=== PATIENT | male | born 1960 | race Caucasian/White ===

== ENCOUNTER 2019-10-20 14:01 | Emergency (ER) | payer OTHER, SELFPAY ==
--- NOTE | ~2019-10-20 | XR_ITS ---
EXAMINATION: XR chest 2V DATE: 10/20/2019 15:08 INDICATION: Upper left chest pain radiating to the left shoulder and nausea TECHNIQUE: PA and lateral views of the chest were obtained. COMPARISON: Chest radiograph dated 01/11/[address] dated 06/21/2018 FINDINGS: The lungs are clear with no focal airspace opacities, pulmonary edema, pleural effusion or pneumothor ax. The cardiomediastinal silhouette is normal. Visualized bones and soft tissues are unremarkable. IMPRESSION: 1. No acute cardiopulmonary disease. Reviewed, dictated and finalized at location A.
[2019-10-20 14:18] VITALS: BP 143/86; PULSE 81; RESP 16; O2SAT 97
[2019-10-20 14:30] VITALS: O2SAT 100
--- NOTE | 2019-10-20 14:40 | ECG_ITS ---
Measurements Intervals [place] Rate: 74 P: 52 [place]: 122 QRS: 15 QRSD: 93 T: 17 QT: 390 QTc: 435 Interpretive Statements SINUS RHYTHM BORDERLINE T WAVE ABNORMALITY- INFERIOR LEADS BORDERLINE ECG Electronically Signed On 10-20-2019 15:42:57 CDT by Boubacar Silva D.O.
[2019-10-20 14:41] VITALS: PULSE 70
[2019-10-20 15:30] VITALS: BP 109/88; PULSE 93; RESP 16
[2019-10-20 15:44] LABS: Basophils Percent Auto 0.7 % (0.2-1.2); Hematocrit 40.8 % (42.0-52.0); Hemoglobin 14.2 g/dL (14.0-18.0); Immature Granulocyte Absolute 0.01 K/mm3 (0.00-0.031); Immature Granulocyte Percent A 0.2 % (0-0.5); Mean Corpuscular HGB Conc 34.8 g/dl (32-36); Mean Corpuscular Hemoglobin 33.1 pg (26-34); Mean Corpuscular Volume 95.1 fl (80-100); Mean Platelet Volume 9.9 fl (7.4-10.4); Monocytes Absolute Auto 0.5 K/mm3 (0.1-0.6); Monocytes Percent Auto 11.9 % (2.6-8.5); Neutrophils Absolute Auto 2.3 K/mm3 (1.3-6.7); Neutrophils Percent Auto 55.2 % (45.5-73.1); Platelet Count Result 147 k/mm3 (150-375); Red Blood Count 4.29 M/mm3 (4.6-6.20); Red Cell Distribution Width 11.9 % (11.5-14.5); White Blood Count 4.2 K/mm3 (4.5-10.0)
[2019-10-20 15:55] LABS: INR 1.1; Partial Thromboplastin Time 27.2 SECONDS (22.3-36.8); Prothrombin Time 13.5 Seconds (11.1-14.7)
[2019-10-20 15:56] LABS: Blood Urea Nitrogen 13 mg/dL (9-20); Calcium 8.7 mg/dL (8.4-10.2); Carbon Dioxide 28 mmol/L (22-30); Chloride 105 mmol/L (98-107); Estimated CRCL calculation 88 ml/min; Estimated Glomerular Filt Rate > 60; Glucose 108 mg/dL (75-110); Potassium 3.7 mmol/L (3.4-5.0); Sodium 137 mmol/L (137-145)
--- NOTE | 2019-10-20 16:03 | ED.GENADULT ---
HPI - General Adult General Chief complaint: Chest Pain Stated complaint: CP X 1 WEEK Time Seen by Provider: 10/20/19 15:32 History of Present Illness HPI narrative: Patient is a 59 y/o male complaining of intermittent, left sided, chest pressure for about 1 weeks. He states that his discomfort is mild and there no alleviating or exacerbating factor. The discomfort radiates to his left shoulder. He denies any cough, fever or SOB. Related Data Allergies Allergy/AdvReac Type Severity Reaction Status Date / Time No Known Allergies Allergy Verified 10/20/19 14:23 Review of Systems Constitutional: Constitutional: Denies chills, Denies fever(s), Denies headache(s) and Denies weakness Eyes: Eyes: Denies blurry vision ENT: Denies headache(s) and Denies neck pain Cardiovascular: Cardiovascular: Reports chest pain and Denies dyspnea Respiratory: Respiratory: Denies cough and Denies dyspnea Gastrointestinal: Gastrointestinal: Denies abdominal pain, Denies diarrhea, Denies nausea and Denies vomiting Genitourinary: Genitourinary: Denies hematuria and Denies dysuria Musculoskeletal: Musculoskeletal: Denies back pain and Denies neck pain Neurologic: Denies headache(s) and Denies weakness [facility]LY [facility] Family History Family History Mother Patient's mother is in good health Father Family history of malignant neoplasm, Onset Age: 78 Patient's father is Social History Social History Smoking status: Never smoker Second hand tobacco smoke exposure: No Alcohol intake: current Exam Const: General: no acute distress and well developed Orientation/consciousness: oriented to person, oriented to place, oriented to time and patient oriented x3 HENMT: Head: normocephalic Ears: external ears normal General nose exam: Normal external nose present Eyes: General: appearance normal, both eyes and all related structures Conjunctivae: conjunctivae normal Neck: Neck: normal visual inspection and full ROM Chest: Chest palpation & inspection: normal inspection of the chest and no tenderness Resp: Effort & Inspection: normal respiratory effort Auscultation: clear to auscultation bilaterally Cardio: Rate: regular rate Rhythm: regular rhythm GI: GI Palp: No abdominal tenderness and Yes Soft to palpation Skin: General skin exam: normal color and turgor normal Neuro: General: oriented to person, oriented to place, oriented to time and patient oriented x3 Cognition (Neuro): normal cognition Extrem: General: normal to inspection, full ROM and no pedal edema Psych: Appearance: grossly normal Mental Status: mental status grossly normal Affect: normal affect Course Vital Signs Vital signs: Vital Signs Pulse Rate 81 10/20/19 14:18 Respiratory Rate 16 10/20/19 14:18 Blood Pressure 143/86 H 10/20/19 14:18 Pulse Oximetry 97 10/20/19 14:18 Pulse Rate 95 10/20/19 16:30 Respiratory Rate 16 10/20/19 16:30 Blood Pressure 109/67 10/20/19 16:30 Pulse Oximetry 100 10/20/19 16:30 Medical Decision Making Vital Signs Vital Signs: Vital Signs Pulse Rate 81 10/20/19 14:18 Respiratory Rate 16 10/20/19 14:18 Blood Pressure 143/86 H 10/20/19 14:18 Pulse Oximetry 97 10/20/19 14:18 Pulse Rate 95 10/20/19 16:30 Respiratory Rate 16 10/20/19 16:30 Blood Pressure 109/67 10/20/19 16:30 Pulse Oximetry 100 10/20/19 16:30 Lab Data Result diagrams: 10/20/19 15:38 10/20/19 15:38 Labs: Lab Results 10/20/19 10/20/19 10/20/19 Range/Units 15:38 15:38 15:38 WBC 4.2 L (4.5-10.0) K/mm3 RBC 4.29 L (4.6-6.20) M/mm3 Hgb 14.2 (14.0-18.0) g/dL Hct 40.8 L (42.0-52.0) % MCV 95.1 (80-100) fl MCH 33.1 (26-34) pg MCHC 34.8 (32-36) g/dl RDW 11.9 (11.5-14.5) % Plt Count 147 L (150-375) k/mm3 MPV
[2019-10-20 16:07] LABS: D Dimer 0.27 ug/mL (<0.48)
[2019-10-20 16:08] LABS: Troponin I < 0.012 ng/mL (0.000-0.034)
[2019-10-20 16:30] VITALS: BP 109/67; PULSE 95; RESP 16; O2SAT 100
[2019-10-20 18:34] LABS: Troponin I < 0.012 ng/mL (0.000-0.034)
[2019-10-20 19:02] VITALS: BP 134/90; PULSE 72; RESP 16
== END 2019-10-20 19:05 | disposition home or self-care (01) ==
PROVIDERS: Emergency Medicine; Emergency Provider Emergency Medicine; PCP Internal Medicine
DX: R07.9 Chest pain, unspecified (principal)
CPT/HCPCS: 36415; 71046; 80048; 84484; 85025; 85380; 85610; 85730; 93005; 99284

== ENCOUNTER 2019-11-17 07:21 | Outpatient (CLI) | payer OTHER, SELFPAY ==
--- NOTE | ~2019-11-17 | CT_ITS ---
EXAMINATION: CT chest wo con DATE: 11/17/2019 07:43 INDICATION: R91.1 Solitary pulmonary nodule TECHNIQUE: Computed tomography (CT) of the chest was performed without intravenous contrast. Addition al 3D reconstructions utilizing coronal maximum intensity projection (MIP) were performed. Automated exposure control and iterative reconstruction technique were employed. The dose-length product was 24 4.40 mGy-cm. COMPARISON: 06/21/2018 FINDINGS: No interval change in size of a 8 mm right lower lobe nodule which is since developed central calcifi cation consistent with old granulomatous disease. There are a few additional scattered tiny calcified granulomata in both lungs. Unchanged small flat intrafissural lymph node along the right minor fissu re. No new or enlarging pulmonary nodules identified. No pneumonia, pulmonary edema, pleural effusion or pneumothorax. Heart size is normal. Atherosclerotic coronary artery calcification. No pericardial effusion. Thoracic aorta is normal in caliber. No pathologically enlarged thoracic lymphadenopathy. Bones are unremarkable. IMPRESSION: 1. No change in size of the prior 8 mm right lower lobe pulmonary nodule concerning demonstrating kendall tral calcification consistent with old granulomatous disease requiring no further follow-up. No new o r enlarging nodules identified. Reviewed, dictated and finalized at location A. IMPRESSION: 1. No change in size of the prior 8 mm right lower lobe pulmonary nodule concer geovany demonstrating central calcification consistent with old granulomatous dise ase requiring no further follow-up. No new or enlarging nodules identified.
== END 2019-11-17 07:22 | disposition home or self-care (01) ==
LOC: ANHIMG 07:28
PROVIDERS: PCP Internal Medicine; Visit Provider Internal Medicine
DX: R91.1 Solitary pulmonary nodule (principal)
CPT/HCPCS: 71250

== ENCOUNTER 2019-11-26 08:55 | Outpatient (CLI) | payer OTHER, SELFPAY ==
--- NOTE | ~2019-11-26 | NM_ITS ---
EXAMINATION: NM stress w perf spect multi DATE: 11/26/2019 11:32 INDICATION: Chest pain. TECHNIQUE: Rest images were obtained following intravenous administration of 9.6 mCi Tc99m tetrofosmi n ([employer]). The patient performed an exercise activity. At peak exercise, 30.3 mCi Tc99m tetrofosmin ([employer]) was administered intravenously, and stress images were obtained. Data was reconstructed in to short axis and horizontal and vertical long axis SPECT images. Gated SPECT images were also obtain ed. COMPARISON: Chest CT 11/17/2019 FINDINGS: There is no definite reversible or fixed perfusion abnormality to suggest ischemia or infar ction. There is no segmental wall motion abnormality. Left ventricular ejection fraction measures 6 4%. IMPRESSION: 1. No definite ischemia or infarct. 2. Normal left ventricular ejection fraction measuring 64%. Reviewed, dictated and finalized at location A.
[2019-11-26 09:31] LABS: Basophils Absolute Auto 0.1 K/mm3 (0.0-0.1); Basophils Percent Auto 1.4 % (0.2-1.2); Eosinophils Absolute Auto 0.2 K/mm3 (0-0.3); Eosinophils Percent Auto 3.9 % (0-4.4); Hematocrit 46.9 % (42.0-52.0); Hemoglobin 16.4 g/dL (14.0-18.0); Immature Granulocyte Absolute 0.03 K/mm3 (0.00-0.031); Immature Granulocyte Percent A 0.7 % (0-0.5); Lymphocytes Absolute Auto 1.57 K/mm3 (0.9-3.2); Lymphocytes Percent Auto 35.8 % (18.3-44.2); Mean Corpuscular Hemoglobin 33.4 pg (26-34); Mean Corpuscular Volume 95.5 fl (80-100); Mean Platelet Volume 9.8 fl (7.4-10.4); Monocytes Absolute Auto 0.5 K/mm3 (0.1-0.6); Monocytes Percent Auto 12.3 % (2.6-8.5); Neutrophils Percent Auto 45.9 % (45.5-73.1); Platelet Count Result 163 k/mm3 (150-375); Red Blood Count 4.91 M/mm3 (4.6-6.20); White Blood Count 4.4 K/mm3 (4.5-10.0)
--- NOTE | 2019-11-26 10:03 | EST_ITS ---
Patient Info Name: Arpit Bedolla Age: 59 years : 1960 Gender: Male Ht: 69 in Wt: 170 lbs BSA: 1.95 m2 Exam Date: 11/26/2019 10:10 AM Exam Location: [facility] Stress Patient Status: Outpatient Admit Date: 11/26/2019 Staff Ordering Physician: Mack Zeng DO Attending Provider: Mack Zeng DO Exercise Technologist: Michael Osborn RDCS, RT Exercise Physician: Boubacar Silva DO Exam Type: CA stress test treadmill w NM Study Info A treadmill exercise stress test was performed. Summary 1. 1. Negative Sammy exercise stress test for ischemic ST changes by ECG criteria. 2. 2. Good functional capacity, achieving 12 METs of workload. 3. 3. Appropriate HR response to exercise. 4. 4. Appropriate HR recovery at 1 minute post exercise. 5. 5. Nuclear scan to follow and will be reported separately. Please correlate with it. 6. 6. Patient informed of the above results. Protocol: Sammy Stress ECG Details Stage: REST Duration (min): 3 min : 8 sec Speed (mph): 0.0 Grade (%): 0 HR (bpm): 69 SBP (mmHg): 132 DBP (mmHg): 87 METS: --- Stage: REST Duration (min): 10 min : 18 sec Speed (mph): 0.0 Grade (%): 0 HR (bpm): 98 SBP (mmHg): 132 DBP (mmHg): 87 METS: --- Stage: STAGE 1 Duration (min): 1 min : 0 sec Speed (mph): 1.7 Grade (%): 10 HR (bpm): 97 SBP (mmHg): 132 DBP (mmHg): 87 METS: --- Stage: STAGE 1 Duration (min): 2 min : 0 sec Speed (mph): 1.7 Grade (%): 10 HR (bpm): 99 SBP (mmHg): 132 DBP (mmHg): 87 METS: --- Stage: STAGE 1 Duration (min): 3 min : 0 sec Speed (mph): 1.7 Grade (%): 10 HR (bpm): 97 SBP (mmHg): 142 DBP (mmHg): 80 METS: --- Stage: STAGE 2 Duration (min): 1 min : 0 sec Speed (mph): 2.5 Grade (%): 12 HR (bpm): 110 SBP (mmHg): 142 DBP (mmHg): 80 METS: --- Stage: STAGE 2 Duration (min): 2 min : 0 sec Speed (mph): 2.5 Grade (%): 12 HR (bpm): 113 SBP (mmHg): 137 DBP (mmHg): 81 METS: --- Stage: STAGE 2 Duration (min): 3 min : 0 sec Speed (mph): 2.5 Grade (%): 12 HR (bpm): 113 SBP (mmHg): 137 DBP (mmHg): 81 METS: --- Stage: STAGE 3 Duration (min): 1 min : 0 sec Speed (mph): 3.4 Grade (%): 14 HR (bpm): 125 SBP (mmHg): 163 DBP (mmHg): 78 METS: --- Stage: STAGE 3 Duration (min): 2 min : 0 sec Speed (mph): 3.4 Grade (%): 14 HR (bpm): 134 SBP (mmHg): 163 DBP (mmHg): 78 METS: --- Stage: STAGE 3 Duration (min): 3 min : 0 sec Speed (mph): 3.4 Grade (%): 14 HR (bpm): 140 SBP (mmHg): 163 DBP (mmHg): 76 METS: --- Stage: STAGE 4 Duration (min): 1 min : 0 sec Speed (mph): 4.2 Grade (%): 16 HR (bpm): 156 SBP (mmHg): 163 DBP (mmHg): 76 METS: --- Stage: STAGE 4 Duration (min): 1 min : 14 sec S
[2019-11-26 11:07] LABS: Alanine Aminotransferase 52 U/L (4-50); Albumin Level 4.4 g/dL (3.5-5.1); Alkaline Phosphatase 77 U/L (38-126); Anion Gap 5 mmol/L (8-16); Aspartate Amino Transferase 42 U/L (17-59); Blood Urea Nitrogen 21 mg/dL (9-20); Calcium 9.1 mg/dL (8.4-10.2); Carbon Dioxide 30 mmol/L (22-30); Chloride 104 mmol/L (98-107); Cholesterol 288 mg/dL (0-200); Estimated Glomerular Filt Rate > 60; Glucose 95 mg/dL (75-110); HDL Direct 47 mg/dL; Potassium 4.6 mmol/L (3.4-5.0); Sodium 139 mmol/L (137-145); Triglycerides 293 mg/dL (<150)
[2019-11-26 11:45] LABS: LDL Cholesterol Direct 163 mg/dL
[2019-11-26 12:43] LABS: Folic Acid 13.8 ng/mL (2.76->20)
== END 2019-11-26 08:56 | disposition home or self-care (01) ==
PROVIDERS: PCP Internal Medicine; Visit Provider Internal Medicine
DX: E78.5 Hyperlipidemia, unspecified (principal); R07.9 Chest pain, unspecified; R53.83 Other fatigue
CPT/HCPCS: 36415; 78452; 80053; 80061; 82607; 82746; 84443; 85025; 93017; A9502

== ENCOUNTER 2020-06-15 08:13 | Outpatient (CLI) | payer OTHER, SELFPAY ==
[2020-06-15 08:35] LABS: Basophils Absolute Auto 0.1 K/mm3 (0.0-0.1); Basophils Percent Auto 1.3 % (0.2-1.2); Eosinophils Absolute Auto 0.1 K/mm3 (0-0.3); Eosinophils Percent Auto 3.8 % (0-4.4); Hematocrit 44.7 % (42.0-52.0); Hemoglobin 15.1 g/dL (14.0-18.0); Immature Granulocyte Absolute 0.01 K/mm3 (0.00-0.031); Immature Granulocyte Percent A 0.3 % (0-0.5); Lymphocytes Absolute Auto 1.34 K/mm3 (0.9-3.2); Mean Corpuscular HGB Conc 33.8 g/dl (32-36); Mean Corpuscular Hemoglobin 32.7 pg (26-34); Mean Corpuscular Volume 96.8 fl (80-100); Mean Platelet Volume 9.4 fl (7.4-10.4); Monocytes Absolute Auto 0.5 K/mm3 (0.1-0.6); Monocytes Percent Auto 14.5 % (2.6-8.5); Neutrophils Absolute Auto 1.6 K/mm3 (1.3-6.7); Neutrophils Percent Auto 44.1 % (45.5-73.1); Platelet Count Result 141 k/mm3 (150-375); Red Blood Count 4.62 M/mm3 (4.6-6.20); Red Cell Distribution Width 11.9 % (11.5-14.5); White Blood Count 3.7 K/mm3 (4.5-10.0)
[2020-06-15 08:48] LABS: Alanine Aminotransferase 36 U/L (4-50); Albumin Level 4.1 g/dL (3.5-5.1); Alkaline Phosphatase 69 U/L (38-126); Anion Gap 3 mmol/L (8-16); Aspartate Amino Transferase 31 U/L (17-59); Bilirubin,Total 0.9 mg/dL (0.2-1.3); Blood Urea Nitrogen 14 mg/dL (9-20); Calcium 9.1 mg/dL (8.4-10.2); Carbon Dioxide 32 mmol/L (22-30); Chloride 105 mmol/L (98-107); Cholesterol 175 mg/dL (0-200); Estimated Glomerular Filt Rate > 60; Glucose 124 mg/dL (75-110); HDL Direct 47 mg/dL; Potassium 4.3 mmol/L (3.4-5.0); Sodium 140 mmol/L (137-145); Triglycerides 158 mg/dL (<150)
[2020-06-15 09:00] LABS: LDL Cholesterol Direct 86 mg/dL
== END 2020-06-15 08:14 | disposition home or self-care (01) ==
PROVIDERS: PCP Internal Medicine; Visit Provider Internal Medicine
DX: R53.83 Other fatigue (principal); Z00.00 Encounter for general adult medical examination without abnormal findings
CPT/HCPCS: 36415; 80053; 80061; 82607; 82746; 84443; 85025

== ENCOUNTER 2020-07-23 13:17 | Emergency (ER) | payer OTHER, SELFPAY ==
[2020-07-23 13:20] VITALS: BP 152/98; PULSE 67; RESP 20; TEMP 36.6; O2SAT 100
[2020-07-23 15:21] VITALS: BP 179/80; PULSE 67; RESP 16; O2SAT 100
--- NOTE | 2020-07-23 15:57 | ED.BACK ---
HPI - Back Pain/Injury General Chief Complaint: Back Pain/Injury Stated Complaint: back pain Time Seen by Provider: 07/23/20 15:16 Source: patient Mode of arrival: ambulatory Limitations: no limitations History of Present Illness HPI Narrative: This is a 60 year old male with history of chronic low back pain who presents for evaluation of worsening low back pain. He has developed gradual worsening of his lower back pain over the past 8 hours. He states his pain started getting worse with walking. He has pain that radiates down his right leg. He denies numbness or tingling. He denies urinary retention, incontinence or bowel incontinence. He also denies saddle anesthesia. He took ibuprofen at 7 am this morning and he has not taken any medication since. He receives back injections for his back pain and he scheduled for another one in 2 weeks. He states he had an MRI 2 years ago. Patient is worse with moving. He states his pain is worse with he tries to straighten his legs. Related Data Home Medications Medication Instructions Recorded Confirmed colchicine mg 07/23/20 Allergies Allergy/AdvReac Type Severity Reaction Status Date / Time No Known Allergies Allergy Verified 07/23/20 13:24 Review of Systems Review of Systems: All systems reviewed & are unremarkable except as noted in HPI and below Constitutional: Constitutional: Denies chills and Denies fever(s) Respiratory: Respiratory: Denies dyspnea Gastrointestinal: Gastrointestinal: Denies abdominal pain, Denies diarrhea, Denies nausea and Denies vomiting Genitourinary: Genitourinary: Denies hematuria, Denies oliguria and Denies urinary incontinence Musculoskeletal: Musculoskeletal: Reports back pain Neurologic: Denies focal weakness, Denies numbness and Denies weakness FOR[facility]LY [facility] Past Medical History Medical History (Updated 07/23/20 @ 17:04 by Michelle Cowan MD) Chronic back pain Hyperlipidemia Family History Family History Mother Patient's mother is in good health Father Family history of malignant neoplasm, Onset Age: 78 Patient's father is Social History Social History Smoking status: Never smoker Second hand tobacco smoke exposure: No Alcohol intake: current Substance use: never Gender identity (if verbalized by the patient): Male Exam Const: General: alert Orientation/consciousness: patient oriented x3 Eyes: EOM: EOMs intact bilaterally Chest: Chest palpation & inspection: normal inspection of the chest Resp: Effort & Inspection: normal respiratory effort and no retractions Auscultation: clear to auscultation bilaterally Cardio: Rate: regular rate Rhythm: regular rhythm Heart sounds: no murmurs GI: GI Palp: Yes Soft to palpation, No Tenderness to palpation present (GI) and No Guarding due to palpation present (GI) Auscultation: normal bowel sounds Back/Spine/Pelvis: Thoracic/Lumbar Spine: thoraco-lumbar ROM limited (pain with extending his right leg, ) and straight leg raise positive Skin: General skin exam: normal color Rashes: no rashes Neuro: General: patient oriented x3, moves all extremities and CN's II-XI intact bilaterally Psych: Mental Status: mental status grossly normal Affect: normal affect Course Reevaluation(s) Reevaluation #1: PAtient reports he feels better. HE is able to stand up from bed. He has not signs of acute cord compression. I discussed discharge plan and treatment. He will follow up with pcp, pain management for treatment and outpatient MRI Date: 07/23/20 Time: 17:03 Vital Signs Vital signs: Vital Signs Temperature 97.9 F 07/23/20 13:20 Pulse Rate 67 07/23/20 13:20 Respiratory Rate 20 07/23/20 13:20 Blood Pressure 152/98 H 07/23/20 13:20 Pulse Oximetry 100 07/23/20 13:20 Temperature 98.0 F 07/23/20 17:26 Pulse R
[2020-07-23] MEDS: methylPREDNISolone SOD SUCC 125 MG VIAL IV PUSH (16:02)
[2020-07-23] MEDS: HYDROmorphone HCL INJ (*CRX) 1 MG/ML SYR IV PUSH (16:03)
[2020-07-23] MEDS: KETOROLAC 30 MG/ML VIAL (*BKC) IV PUSH (16:03)
[2020-07-23 17:14] VITALS: BP 155/91; PULSE 82; RESP 18; O2SAT 97
[2020-07-23 17:26] VITALS: BP 156/91; PULSE 77; RESP 16; TEMP 36.7; O2SAT 97
== END 2020-07-23 17:28 | disposition home or self-care (01) ==
PROVIDERS: Emergency Provider General Practice; PCP Internal Medicine
DX: M54.16 Radiculopathy, lumbar region (principal); E78.5 Hyperlipidemia, unspecified
CPT/HCPCS: 96374; 96375; 99284; J1170; J1885; J2930

== ENCOUNTER → 2020-08-12 07:13 | Outpatient (CLI) | payer OTHER, SELFPAY ==
--- NOTE | ~2020-08-12 | MR_ITS ---
EXAMINATION: MR lumbar spine wo con EXAM DATE: 08/12/2020 07:48 INDICATION: Low back pain, occasional leg pain. Lumbar radiculopathy. TECHNIQUE: Multi-sequential, multiplanar MR images of the lumbar spine were obtained without contrast . Sagittal T1, T2, T2 fat saturation images. Axial T2 weighted images. Comparison is made to prior examination from 05/18/2018. FINDINGS: There is rudimentary L5-S1 disc with superimposed mild to moderate disc disease. Mild disc disease at the other lumbar levels. There is 2 mm retrolisthesis L4 on L5. The vertebral bodies are o therwise aligned. The conus medullaris terminates at the L1/2 level and has normal signal intensity a nd morphology. Paraspinal soft tissue is unremarkable. Level by level evaluation: T12-L1: Disc does not extend beyond the endplate margin. Facet arthropathy: Minimal. Neural foraminal stenosis: No stenosis. Central canal stenosis: No stenosis. L1-L2: Disc does not extend beyond the endplate margin. Facet arthropathy: Mild. Neural foraminal stenosis: No stenosis. Central canal stenosis: No stenosis. L2-L3: Disc does not extend beyond the endplate margin. Facet arthropathy: Mild. Neural foraminal stenosis: No stenosis. Central canal stenosis: No stenosis. L3-L4: There is a mild diffuse disc bulge. Facet arthropathy: Mild. Neural foraminal stenosis: No stenosis. Central canal stenosis: No stenosis. L4-L5: There is a mild diffuse disc bulge. Facet arthropathy: Mild. Neural foraminal stenosis: Mild right. Central canal stenosis: Mild. L5-S1: There is a mild to moderate diffuse disc bulge, superimposed left central extrusion causing mi ld mass effect on the traversing left S1 nerve root in the lateral recess. Facet arthropathy: Mild bilateral. Neural foraminal stenosis: Mild to moderate bilateral. Central canal stenosis: Mild. Left lateral recess narrowing. IMPRESSION: 1. L5-S1 small left central extrusion causing mild mass effect on traversing left S1 nerve root in t he lateral recess. 2. Overall mild lumbar spondylosis. Reviewed, dictated and finalized at location B. IMPRESSION: 1. L5-S1 small left central extrusion causing mild mass effect on traversing l eft S1 nerve root in the lateral recess. 2. Overall mild lumbar spondylosis.
== END ==
PROVIDERS: PCP Internal Medicine; Visit Provider Nurse Practitioner Family
DX: M47.26 Other spondylosis with radiculopathy, lumbar region (principal); M51.26 Other intervertebral disc displacement, lumbar region
CPT/HCPCS: 72148

== ENCOUNTER 2020-11-20 10:47 | Emergency (ER) | payer OTHER, SELFPAY ==
--- NOTE | ~2020-11-20 | XR_ITS ---
EXAMINATION: XR finger 2nd LT min 2V INDICATION: Left second finger pain and laceration TECHNIQUE: Four views of the left second finger are obtained. COMPARISON: None available FINDINGS: There is a soft tissue laceration at the lateral aspect of the distal left second finger ne ar the distal phalanx. No underlying osseous abnormality is identified. There is no radiopaque foreig n body. Mild osteoarthritis is noted. IMPRESSION: 1. Soft tissue laceration of the distal second finger without underlying osseous abnormality or radio paque foreign body. Reviewed, dictated and finalized at location A. IMPRESSION: 1. Soft tissue laceration of the distal second finger without underlying osseou s abnormality or radiopaque foreign body.
[2020-11-20 10:54] VITALS: BP 155/100; PULSE 103; RESP 18; TEMP 36.4; O2SAT 99
--- NOTE | 2020-11-20 12:25 | ED.WOUNDLAC ---
HPI - Wound/Laceration General Chief Complaint: Wound/Laceration Stated Complaint: finger lac Time Seen by Provider: 11/20/20 11:53 History of Present Illness HPI narrative: Patient presents for laceration to his finger. Patient was reports he was using a hedge tremor in his yard and he does not remember exactly how he caught his finger but his left hand was caught on the blade and he injured his index finger. He is right-hand dominant does not member his last tetanus shot. Reports some numbness around the laceration also reports pain that is achy, constant, worse with moving his finger. Related Data Home Medications Medication Instructions Recorded Confirmed colchicine mg 07/23/20 Allergies Allergy/AdvReac Type Severity Reaction Status Date / Time No Known Allergies Allergy Verified 07/23/20 13:24 Review of Systems Review of Systems: CONSTITUTIONAL: Denies fever, chills, or sweats. EYES: Denies visual changes, redness, or discharge. CARDIOVASCULAR: Denies chest pain, palpitations, or edema. RESPIRATORY: Denies cough or dyspnea. GASTROINTESTINAL: Denies abdominal pain, nausea, vomiting, or diarrhea. SKIN: Denies rash or itching. NEUROLOGIC: Denies headache, dizziness, or weakness. [facility] Past Medical History Medical History Chronic back pain Hyperlipidemia Family History Family History Mother Patient's mother is in good health Father Family history of malignant neoplasm, Onset Age: 78 Patient's father is Social History Social History Smoking status: Never smoker Second hand tobacco smoke exposure: No Alcohol intake: current Substance use: never Gender identity (if verbalized by the patient): Male Exam Narrative: GENERAL: Well-appearing, well-nourished, and in no acute distress. HEAD: Normocephalic, atraumatic. EYES: PERRLA and EOMI. ENT: Nares clear, no rhinorrhea or epistaxis. Mucous membranes moist. EXTREMITIES: Minimal laceration to the distal volar aspect of the second digit on the left hand cap refills less than 2 seconds sensation intact to light touch on the distal aspect of the second digit. Range of motion is intact along the second SKIN: Warm, dry, no rash. NEURO: No focal deficits. Alert and oriented x3. PSYCH: Normal mood and affect. Course Vital Signs Vital signs: Vital Signs Temperature 36.4 C L 11/20/20 10:54 Pulse Rate 103 H 11/20/20 10:54 Respiratory Rate 18 11/20/20 10:54 Blood Pressure 155/100 H 11/20/20 10:54 Pulse Oximetry 99 11/20/20 10:54 Temperature 36.4 C L 11/20/20 10:54 Pulse Rate 78 11/20/20 13:39 Respiratory Rate 20 11/20/20 13:39 Blood Pressure 132/78 11/20/20 13:39 Pulse Oximetry 99 11/20/20 13:39 Procedures Laceration Laceration 1: Date: 11/20/20 Time: 13:08 Site: upper extremity and hand Side (If applicable): left Size (cm): 1.5 Description: flap and irregular Depth: simple, single layer Local Anesthetic: lidocaine 1% (Digital block was performed at the base of the second digit of the left hand) and with epi Amount of anesthesia used (mL): 6 Pre-repair: wound explored, irrigated and irrigated extensively ====== Skin Level ====== Skin layer closed with: nylon Size (cm): 4-0 Technique: simple, interrupted ====== Subcutaneous Layer ====== ====== Muscle Layer ====== ====== Tendon Layer ====== MDM - Wound/Laceration MDM Narrative Medical decision making narrative: H&P as above, vss, pt looks clinically well, exam with distal extremity neurovascularly intact there is no deep tissue injuries noted, imaging without fracture, additional labs/img considered, symptomatic relief available as needed. Patient tetanus was upd
[2020-11-20] MEDS: TETANUS,DIPHTHERIA,AC PERTUSSIS ADULT (0.5 ML) BOOSTRIX IM (12:36)
[2020-11-20 13:39] VITALS: BP 132/78; PULSE 78; RESP 20; O2SAT 99
== END 2020-11-20 13:41 | disposition home or self-care (01) ==
PROVIDERS: Emergency Provider Emergency Medicine; PCP Internal Medicine
DX: S61.211A Laceration without foreign body of left index finger without damage to nail, initial encounter (principal); E78.5 Hyperlipidemia, unspecified; Z23 Encounter for immunization; W29.3XXA Contact with powered garden and outdoor hand tools and machinery, initial encounter
CPT/HCPCS: 12001; 73140; 90471; 90715; 99283

== ENCOUNTER → 2020-12-01 14:54 | Outpatient (CLI) | payer OTHER, SELFPAY ==
--- NOTE | ~2020-12-01 | XR_ITS ---
EXAMINATION: XR shoulder RT min 2V DATE: 12/01/2020 15:56 INDICATION: Right shoulder pain. Fall in October. TECHNIQUE: 4 views of right shoulder were obtained. COMPARISON: Right shoulder radiographs 12/01/2020 FINDINGS: Bone alignment is normal. No fracture. There are likely changes of resection of distal clav icle. Joint spaces are normal. IMPRESSION: 1. No fracture. Reviewed, dictated and finalized at location A. IMPRESSION: 1. No fracture.
--- NOTE | ~2020-12-01 | XR_ITS ---
EXAMINATION: XR clavicle RT DATE: 12/01/2020 15:56 INDICATION: Right shoulder pain. TECHNIQUE: 2 views of right clavicle were obtained. COMPARISON: None. FINDINGS: Bone alignment is normal. No fracture. There are likely changes of distal clavicle resectio n. Coracoclavicular interval is normal. IMPRESSION: 1. No fracture. Reviewed, dictated and finalized at location A. IMPRESSION: 1. No fracture.
== END ==
PROVIDERS: PCP Internal Medicine; Visit Provider Physician Assistant
DX: M25.511 Pain in right shoulder (principal)
CPT/HCPCS: 73000; 73030

== ENCOUNTER 2021-08-08 07:20 | Outpatient (CLI) | payer OTHER, SELFPAY ==
[2021-08-08 07:57] LABS: Alanine Aminotransferase 36 U/L (4-50); Albumin Level 4.4 g/dL (3.5-5.1); Alkaline Phosphatase 81 U/L (38-126); Anion Gap 8 mmol/L (8-16); Aspartate Amino Transferase 33 U/L (17-59); Bilirubin,Total 0.8 mg/dL (0.2-1.3); Blood Urea Nitrogen 14 mg/dL (9-20); Calcium 8.8 mg/dL (8.4-10.2); Carbon Dioxide 27 mmol/L (22-30); Chloride 105 mmol/L (98-107); Cholesterol 292 mg/dL (0-200); Estimated Glomerular Filt Rate > 60; Glucose 108 mg/dL (65-110); HDL Direct 41 mg/dL; Sodium 140 mmol/L (137-145); Triglycerides 349 mg/dL (<150); Uric Acid 8.4 mg/dL (3.5-8.5)
[2021-08-08 08:00] LABS: Rheumatoid Factor < 8.6 IU/ML (<12)
[2021-08-08 08:08] LABS: LDL Cholesterol Direct 149 mg/dL
[2021-08-08 08:16] LABS: Erythrocyte Sedimentation Rate 13 mm/hr (0-20)
== END 2021-08-08 07:21 | disposition home or self-care (01) ==
LOC: ANHLAB 07:22
PROVIDERS: PCP Internal Medicine; Visit Provider Physician Assistant
DX: Z00.00 Encounter for general adult medical examination without abnormal findings (principal); E78.5 Hyperlipidemia, unspecified; M25.50 Pain in unspecified joint
CPT/HCPCS: 36415; 80053; 80061; 82607; 82746; 84443; 84550; 85652; 86430

== ENCOUNTER 2022-01-11 14:37 | Outpatient (CLI) | payer OTHER, SELFPAY ==
[2022-01-11 15:13] LABS: Alanine Aminotransferase 63 U/L (6-50); Albumin Level 4.7 g/dL (3.5-5.1); Alkaline Phosphatase 94 U/L (38-126); Anion Gap 9 mmol/L (8-16); Aspartate Amino Transferase 41 U/L (17-59); Bilirubin,Total 1.3 mg/dL (0.2-1.3); Blood Urea Nitrogen 17 mg/dL (9-20); Carbon Dioxide 27 mmol/L (22-30); Chloride 101 mmol/L (98-107); Estimated Glomerular Filt Rate > 60; Glucose 98 mg/dL (65-110); Potassium 3.9 mmol/L (3.4-5.0); Sodium 137 mmol/L (137-145); Uric Acid 9.5 mg/dL (3.5-8.5)
== END 2022-01-11 14:38 | disposition home or self-care (01) ==
LOC: ANHLAB 14:41
PROVIDERS: PCP Internal Medicine; Visit Provider Podiatrist Foot & Ankle Surgery
DX: M10.079 Idiopathic gout, unspecified ankle and foot (principal)
CPT/HCPCS: 36415; 80053; 84550

== ENCOUNTER 2022-04-12 16:17 | Outpatient (CLI) | payer OTHER, SELFPAY ==
[2022-04-12 17:47] LABS: Basophils Absolute Auto 0.1 K/mm3 (0.0-0.1); Basophils Percent Auto 1.1 % (0.2-1.2); Eosinophils Absolute Auto 0.1 K/mm3 (0-0.3); Eosinophils Percent Auto 1.5 % (0-4.4); Hematocrit 43.9 % (42.0-52.0); Hemoglobin 15.2 g/dL (14.0-18.0); Immature Granulocyte Absolute 0.03 K/mm3 (0.00-0.031); Immature Granulocyte Percent A 0.6 % (0-0.5); Lymphocytes Absolute Auto 1.63 K/mm3 (0.9-3.2); Lymphocytes Percent Auto 30.9 % (18.3-44.2); Mean Corpuscular HGB Conc 34.6 g/dl (32-36); Mean Corpuscular Volume 95.4 fl (80-100); Mean Platelet Volume 10.2 fl (7.4-10.4); Monocytes Absolute Auto 0.8 K/mm3 (0.1-0.6); Monocytes Percent Auto 14.2 % (2.6-8.5); Neutrophils Absolute Auto 2.7 K/mm3 (1.3-6.7); Neutrophils Percent Auto 51.7 % (45.5-73.1); Platelet Count Result 169 k/mm3 (150-375); Red Cell Distribution Width 12.2 % (11.5-14.5); White Blood Count 5.3 K/mm3 (4.5-10.0)
[2022-04-12 18:16] LABS: Uric Acid 5.9 mg/dL (3.5-8.5)
[2022-04-12 18:24] LABS: Alanine Aminotransferase 82 U/L (6-50); Albumin Level 4.4 g/dL (3.5-5.1); Alkaline Phosphatase 94 U/L (38-126); Anion Gap 8 mmol/L (8-16); Aspartate Amino Transferase 57 U/L (17-59); Bilirubin,Total 0.9 mg/dL (0.2-1.3); Blood Urea Nitrogen 17 mg/dL (9-20); Calcium 8.6 mg/dL (8.4-10.2); Carbon Dioxide 26 mmol/L (22-30); Chloride 104 mmol/L (98-107); Cholesterol 207 mg/dL (0-200); Estimated Glomerular Filt Rate > 60; Glucose 91 mg/dL (65-110); HDL Direct 42 mg/dL; Potassium 3.9 mmol/L (3.4-5.0); Sodium 138 mmol/L (137-145); Triglycerides 365 mg/dL (<150)
[2022-04-12 18:35] LABS: LDL Cholesterol Direct 101 mg/dL
[2022-04-12 19:30] LABS: Folic Acid 13.4 ng/mL (2.76->20)
== END 2022-04-12 16:18 | disposition home or self-care (01) ==
PROVIDERS: PCP Internal Medicine; Referring Provider Podiatrist Foot & Ankle Surgery; Visit Provider Internal Medicine
DX: E78.5 Hyperlipidemia, unspecified (principal); R53.83 Other fatigue; M10.079 Idiopathic gout, unspecified ankle and foot
CPT/HCPCS: 36415; 80053; 80061; 82607; 82746; 84550; 85025

== ENCOUNTER 2022-08-30 07:21 | Outpatient (CLI) | payer OTHER, SELFPAY ==
[2022-08-30 08:04] LABS: Alanine Aminotransferase 67 U/L (6-50); Albumin Level 4.2 g/dL (3.5-5.1); Alkaline Phosphatase 92 U/L (38-126); Anion Gap 3 mmol/L (8-16); Aspartate Amino Transferase 51 U/L (17-59); Bilirubin,Total 1.3 mg/dL (0.2-1.3); Blood Urea Nitrogen 13 mg/dL (9-20); Calcium 8.5 mg/dL (8.4-10.2); Carbon Dioxide 32 mmol/L (22-30); Chloride 104 mmol/L (98-107); Estimated Glomerular Filt Rate > 60; Glucose 92 mg/dL (65-110); Potassium 3.8 mmol/L (3.4-5.0); Sodium 139 mmol/L (137-145); Uric Acid 3.6 mg/dL (3.5-8.5)
== END 2022-08-30 07:22 | disposition home or self-care (01) ==
LOC: ANHLAB 07:23
PROVIDERS: PCP Internal Medicine; Visit Provider Podiatrist Foot & Ankle Surgery
DX: M10.9 Gout, unspecified (principal)
CPT/HCPCS: 36415; 80053; 84550